=== PATIENT | male | born 1990 | race Caucasian/White ===

== ENCOUNTER 2018-02-25 11:19 | Emergency (ER) | payer BC, OTHER, SELFPAY ==
--- NOTE | 2018-02-25 12:12 | RAD ---
CHEST PA AND LATERAL: Date: 02/25/18 HISTORY: 27-year-old male with history of chest pain, intermittent left-sided chest pain for 1 week. FINDINGS: Heart size is within normal limits. Lungs are clear. No pneumonia, edema, or pleural effusion. IMPRESSION: No acute intrathoracic disease. POS: [facility]
== END 2018-02-25 12:30 | disposition home or self-care (01) ==
LOC: SCSER 11:19
DX: R07.89 Other chest pain (principal); J45.909 Unspecified asthma, uncomplicated
CPT/HCPCS: 71046; 93005